=== PATIENT | male | born 1930 | race Caucasian/White ===

== ENCOUNTER 2020-11-29 23:41 | Inpatient (IN) | payer OTHER ==
[~2020-11-29] VITALS: Ht 182.9 cm; Wt 65.8 kg
[2020-11-30 00:45] LABS: RED BLOOD COUNT 3.38 M/UL (4.20-5.50); WHITE BLOOD COUNT 9.5 K/UL (4.5-11.0)
[2020-11-30 01:07] LABS: BUN/CREATININE RATIO 18 (0-10)
[2020-11-30] MEDS ORDERED: ASPIRIN81 MG PO (05:20)
[2020-11-30] MEDS ORDERED: B COMPLEX1 EACH PO (05:20)
[2020-11-30] MEDS ORDERED: TYLENOL 8 HOUR650 MG PO (05:21)
[2020-11-30] MEDS ORDERED: MIRTAZAPINE30 MG PO (05:22)
[2020-11-30] MEDS ORDERED: LEVOTHYROXINE50 MC1 PO (05:23)
[2020-11-30 09:57] LABS: HEMOGLOBIN 7.4 gm/dl (14.0-17.5); WHITE BLOOD COUNT 8.6 K/UL (4.5-11.0)
[2020-11-30 09:58] LABS: RED BLOOD COUNT 2.83 M/UL (4.20-5.50)
[2020-11-30 10:15] LABS: BUN/CREATININE RATIO 12 (0-10)
[2020-12-01 02:54] LABS: HEMOGLOBIN 7.8 gm/dl (14.0-17.5); RED BLOOD COUNT 2.83 M/UL (4.20-5.50)
[2020-12-01 03:09] LABS: BUN/CREATININE RATIO 11 (0-10); WHITE BLOOD COUNT 6.2 K/UL (4.5-11.0)
[2020-12-02 03:49] LABS: HEMOGLOBIN 8.3 gm/dl (14.0-17.5); RED BLOOD COUNT 3.1 M/UL (4.20-5.50); WHITE BLOOD COUNT 7.4 K/UL (4.5-11.0)
[2020-12-02 04:13] LABS: BUN/CREATININE RATIO 10 (0-10)
[2020-12-03 06:15] LABS: HEMOGLOBIN 8.1 gm/dl (14.0-17.5); WHITE BLOOD COUNT 6.6 K/UL (4.5-11.0)
[2020-12-03 06:43] LABS: BUN/CREATININE RATIO 12 (0-10)
[2020-12-03 15:11] LABS: A/G RATIO 0.6 (0.7-1.7); ALBUMIN 2.3 g/dL (2.9-4.4); ALPHA-1-GLOBULIN 0.5 g/dL (0.0-0.4); ALPHA-2-GLOBULIN 1.1 g/dL (0.4-1.0); BETA GLOBULIN 0.8 g/dL (0.7-1.3); GAMMA GLOBULIN 1.6 g/dL (0.4-1.8); IMMUNOFIXATION RESULT, SERUM Comment: (.); IMMUNOGLOBULIN A, QN, SERUM 380 mg/dL (61-437); IMMUNOGLOBULIN G, QN, SERUM 1591 mg/dL (603-1613); IMMUNOGLOBULIN M, QN, SERUM 54 mg/dL (15-143); M-SPIKE Not Observed g/dL (Not Observed); PROTEIN, TOTAL, SERUM 6.3 g/dL (6.0-8.5)
--- NOTE | 2020-12-03 17:22 | NUR ---
RN ADMINISTERED PATIENT'S LACTINEX PACKET IN APPLESAUCE. NO S/SX OF PAIN OR DISTRESS NOTED. BED LOCKED AND LOW. CALL LIGHT WITHIN REACH.
[2020-12-05 05:36] LABS: HEMOGLOBIN 8.3 gm/dl (14.0-17.5); RED BLOOD COUNT 3.07 M/UL (4.20-5.50); WHITE BLOOD COUNT 7.6 K/UL (4.5-11.0)
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
[2020-12-05 05:55] LABS: BUN/CREATININE RATIO 15 (0-10)
--- NOTE | 2020-12-05 06:24 | NUR ---
APPROX. 0530: PT ALLOWED ME AND TECH (RADHA) TO CHANGE PT'S BRIEF AND CHANGE HIS BED. STILL REFUSING IV ACCESS.
[2020-12-06 06:30] LABS: HEMOGLOBIN 8.6 gm/dl (14.0-17.5); RED BLOOD COUNT 3.21 M/UL (4.20-5.50); WHITE BLOOD COUNT 7.4 K/UL (4.5-11.0)
[2020-12-06 06:51] LABS: BUN/CREATININE RATIO 14 (0-10)
[2020-12-07 04:02] LABS: HEMOGLOBIN 8.7 gm/dl (14.0-17.5); RED BLOOD COUNT 3.22 M/UL (4.20-5.50); WHITE BLOOD COUNT 6.8 K/UL (4.5-11.0)
[2020-12-07 04:46] LABS: BUN/CREATININE RATIO 15 (0-10)
[2020-12-08 03:49] LABS: RED BLOOD COUNT 2.99 M/UL (4.20-5.50); WHITE BLOOD COUNT 6.3 K/UL (4.5-11.0)
[2020-12-08 04:29] LABS: BUN/CREATININE RATIO 13 (0-10)
[2020-12-09 03:04] LABS: HEMOGLOBIN 8.7 gm/dl (14.0-17.5)
[2020-12-09 03:07] LABS: RED BLOOD COUNT 3.31 M/UL (4.20-5.50)
[2020-12-09 03:28] LABS: BUN/CREATININE RATIO 13 (0-10)
[2020-12-10 06:11] LABS: HEMOGLOBIN 8.5 gm/dl (14.0-17.5); RED BLOOD COUNT 3.16 M/UL (4.20-5.50); WHITE BLOOD COUNT 7.7 K/UL (4.5-11.0)
[2020-12-10 06:31] LABS: BUN/CREATININE RATIO 15 (0-10)
[2020-12-11 04:29] LABS: HEMOGLOBIN 8.3 gm/dl (14.0-17.5); RED BLOOD COUNT 3.06 M/UL (4.20-5.50); WHITE BLOOD COUNT 8.2 K/UL (4.5-11.0)
[2020-12-11 04:42] LABS: BUN/CREATININE RATIO 19 (0-10)
[2021-02-07] MEDS ORDERED: SERTRALINE HCL25 MG PO (08:37)
[2021-02-07] MEDS ORDERED: FOLIC ACID 1 MG1 MG PO (08:37)
[2021-02-07] MEDS ORDERED: VITAMIN B COMP1 EAC1 PO (08:37)
[2021-02-07] MEDS ORDERED: DESYREL 50 MG T50 MG PO (08:40)
[2021-02-07] MEDS ORDERED: POTASSIUM20 MEQ/15 PO (08:45)
[2021-02-07] MEDS ORDERED: MELATONIN1 MG/1 ML PO (08:54)
== END 2020-12-12 14:00 | DRG 853 ==
LOC: ER1 23:41 → CDU 11-30 03:00 → MED SURG 4 11-30 03:00
PROVIDERS: Family Medicine; Internal Medicine; Registered Nurse; Surgery; ADMIT Internal Medicine
PROC: 07BH0ZX Excision of Right Inguinal Lymphatic, Open Approach, Diagnostic (ICD-10-PCS; principal; 2020-12-03 18:15)
DX: A41.9 Sepsis, unspecified organism (principal); J18.9 Pneumonia, unspecified organism; J69.0 Pneumonitis due to inhalation of food and vomit; C81.90 Hodgkin lymphoma, unspecified, unspecified site; Z68.1 Body mass index [BMI] 19.9 or less, adult; E03.9 Hypothyroidism, unspecified; I25.10 Atherosclerotic heart disease of native coronary artery without angina pectoris; R62.7 Adult failure to thrive; Z20.822 Contact with and (suspected) exposure to COVID-19; N40.0 Benign prostatic hyperplasia without lower urinary tract symptoms; R53.81 Other malaise; D64.9 Anemia, unspecified; E87.6 Hypokalemia; E83.42 Hypomagnesemia; R59.9 Enlarged lymph nodes, unspecified; R63.4 Abnormal weight loss; Z79.82 Long term (current) use of aspirin; Z95.5 Presence of coronary angioplasty implant and graft; Z87.01 Personal history of pneumonia (recurrent); Z98.42 Cataract extraction status, left eye; Z98.41 Cataract extraction status, right eye; Z88.1 Allergy status to other antibiotic agents; Z82.3 Family history of stroke; Z82.49 Family history of ischemic heart disease and other diseases of the circulatory system; Z80.59 Family history of malignant neoplasm of other urinary tract organ; Z90.49 Acquired absence of other specified parts of digestive tract
CPT/HCPCS: 0241U; 36415; 71045; 71046; 74230; 80048; 80053; 81001; 82784; 82962; 83605; 83735; 83883; 84100; 84132; 84155; 84165; 85025; 85027; 86334; 87040; 87081; 87086; 87205; 87880; 88341; 88342; 88365; 92526; 92610; 92611-GN; 93005; 94640; 94664; 94760; 96365; 96366; 96368; 97110; 97110-GP-CQ; 97162; 97530; 97530-GP-CQ; 99285; J0696; J1335; J1650; J3370; J3475; J3480; J7030; J7120; U0002; U0003

== ENCOUNTER 2021-02-06 20:22 | Observation (INO) | payer OTHER ==
[~2021-02-06] VITALS: Ht 182.9 cm; Wt 60.8 kg
[~2021-02-06 20:22] MED LIST: B COMPLEX1 EACH PO; TYLENOL 8 HOUR650 MG PO
[2021-02-06 20:57] LABS: HEMOGLOBIN 8.5 gm/dl (14.0-17.5); RED BLOOD COUNT 2.98 M/UL (4.20-5.50); WHITE BLOOD COUNT 7.9 K/UL (4.5-11.0)
[2021-02-06 21:22] LABS: BUN/CREATININE RATIO 18 (0-10)
[2021-02-07] MEDS ORDERED: HYDROXYZIN10 MG/5 ML PO (08:39)
[2021-02-07] MEDS ORDERED: MIRALAX17 GM PO (08:41)
[2021-02-07] MEDS ORDERED: ROBITUSSIN AC480 ML PO (08:44)
[2021-02-07 09:26] LABS: BUN/CREATININE RATIO 16 (0-10)
[2021-03-28] MEDS ORDERED: DOXYCYCLINE MO100 MG PO (12:37)
[2021-04-01] MEDS ORDERED: ASPIRIN EC81 MG PO (05:20)
[2021-04-06] MEDS ORDERED: DECADRON6 MG PO (12:13)
[2021-04-06] MEDS ORDERED: ELIQUIS 2.5 MG2.5 MG PO (12:13)
[2021-04-06] MEDS ORDERED: AUGMENTIN 875-1 EACH PO (12:13)
[2021-05-08] MEDS ORDERED: MIRTAZAPINE15 MG PO (05:22)
[2021-05-08] MEDS ORDERED: FOLIC ACID 1 MG1 MG PO (08:37)
[2021-05-08] MEDS ORDERED: VITAMIN B COMP1 EAC1 PO (08:37)
[2021-05-08] MEDS ORDERED: MELATONIN10 M2 PO (08:54)
== END 2021-02-07 17:19 | disposition home or self-care (01) ==
LOC: ER1 20:22 → CDU 02-07 00:11 → M/S 02-07 07:20
PROVIDERS: Physician Assistant; ADMIT Internal Medicine
DX: R07.89 Other chest pain (principal); I49.3 Ventricular premature depolarization; E87.6 Hypokalemia; I25.10 Atherosclerotic heart disease of native coronary artery without angina pectoris; I25.2 Old myocardial infarction; I10 Essential (primary) hypertension; E78.5 Hyperlipidemia, unspecified; E03.9 Hypothyroidism, unspecified; M48.56XD Collapsed vertebra, not elsewhere classified, lumbar region, subsequent encounter for fracture with routine healing; C81.91 Hodgkin lymphoma, unspecified, lymph nodes of head, face, and neck; C79.51 Secondary malignant neoplasm of bone; D50.8 Other iron deficiency anemias; E43 Unspecified severe protein-calorie malnutrition; Z68.1 Body mass index [BMI] 19.9 or less, adult; Z20.822 Contact with and (suspected) exposure to COVID-19; Z95.5 Presence of coronary angioplasty implant and graft; Z91.018 Allergy to other foods; Z98.890 Other specified postprocedural states; Z96.1 Presence of intraocular lens; Z88.1 Allergy status to other antibiotic agents; Z79.82 Long term (current) use of aspirin; Z79.899 Other long term (current) drug therapy
CPT/HCPCS: 36415; 71045; 80048; 80053; 81001; 82550; 82553; 83036; 83735; 83874; 83880; 84100; 84439; 84443; 84484; 84550; 85025; 85379; 85610; 85730; 87077; 87086; 87186; 93005; 96374; 99285; G0378; Q9967; U0002

== ENCOUNTER 2021-04-01 15:08 | Inpatient (IN) | payer OTHER ==
[~2021-04-01] VITALS: Ht 180.3 cm; Wt 61.2 kg
[~2021-04-01 15:08] MED LIST changes: +ASPIRIN EC81 MG PO; +DOXYCYCLINE MO100 MG PO; +FOLIC ACID 1 MG1 MG PO; +HYDROXYZIN10 MG/5 ML PO; +MELATONIN1 MG/1 ML PO; +MIRALAX17 GM PO; +MIRTAZAPINE30 MG PO; +ROBITUSSIN AC480 ML PO; +VITAMIN B COMP1 EAC1 PO
[2021-04-01 15:29] LABS: HEMOGLOBIN 8.9 gm/dl (14.0-17.5); RED BLOOD COUNT 3.01 M/UL (4.20-5.50)
[2021-04-01 15:48] LABS: BUN/CREATININE RATIO 18 (0-10)
[2021-04-02 04:40] LABS: BUN/CREATININE RATIO 19 (0-10)
[2021-04-02 04:58] LABS: RED BLOOD COUNT 2.79 M/UL (4.20-5.50)
[2021-04-02 05:03] LABS: WHITE BLOOD COUNT 1.1 K/UL (4.5-11.0)
[2021-04-02] MEDS ORDERED: LEVOTHYROXINE50 MCG PO (05:23)
[2021-04-02] MEDS ORDERED: SERTRALINE HCL25 MG PO (08:37)
[2021-04-02] MEDS ORDERED: TRAZODONE HCL100 MG PO (08:40)
[2021-04-02] MEDS ORDERED: POTASSIUM20 MEQ/15 PO (08:45)
[2021-04-02] MEDS ORDERED: QUETIAPINE FUMA25 MG PO (12:15)
--- NOTE | 2021-04-03 02:30 | NUR ---
AT APPROXIMATELY 2200 I CONTACTED THE PTS DAUGHTER CHANTAL BROOKS TO OBTAIN HIS ADMIT ASSESSMENT INFORMATION. 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 I EXPLAINED WHAT THIS MEANT AND SHE VERBALIZED UNDERSTANDING. I CONTACTED THE MD AND NOTIFIED HIM AND RECEIVED AND ORDER FOR DNR STATUS.
[2021-04-03 04:17] LABS: HEMOGLOBIN 8.7 gm/dl (14.0-17.5); RED BLOOD COUNT 2.97 M/UL (4.20-5.50)
[2021-04-03 04:28] LABS: WHITE BLOOD COUNT 2.4 K/UL (4.5-11.0)
[2021-04-03 04:53] LABS: BUN/CREATININE RATIO 24 (0-10)
[2021-04-04 07:15] LABS: HEMOGLOBIN 8.9 gm/dl (14.0-17.5); RED BLOOD COUNT 3.16 M/UL (4.20-5.50)
[2021-04-04 07:17] LABS: WHITE BLOOD COUNT 4.6 K/UL (4.5-11.0)
[2021-04-04 08:07] LABS: BUN/CREATININE RATIO 26 (0-10)
[2021-04-05 06:32] LABS: HEMOGLOBIN 9.4 gm/dl (14.0-17.5); RED BLOOD COUNT 3.2 M/UL (4.20-5.50); WHITE BLOOD COUNT 4.7 K/UL (4.5-11.0)
[2021-04-05 06:44] LABS: BUN/CREATININE RATIO 23 (0-10)
[2021-04-06 07:47] LABS: RED BLOOD COUNT 3.17 M/UL (4.20-5.50); WHITE BLOOD COUNT 5.5 K/UL (4.5-11.0)
[2021-04-06 08:01] LABS: BUN/CREATININE RATIO 21 (0-10)
[2021-04-06] MEDS ORDERED: ELIQUIS 2.5 MG2.5 MG PO (12:13)
[2021-04-06] MEDS ORDERED: DECADRON6 MG PO (12:13)
[2021-04-06] MEDS ORDERED: AUGMENTIN 875-1 EACH PO (12:13)
[2021-04-07 07:01] LABS: HEMOGLOBIN 9.3 gm/dl (14.0-17.5); RED BLOOD COUNT 3.16 M/UL (4.20-5.50); WHITE BLOOD COUNT 5.2 K/UL (4.5-11.0)
[2021-04-07 07:24] LABS: BUN/CREATININE RATIO 18 (0-10)
--- NOTE | 2021-04-07 13:56 | NUR ---
04/07/21 1352 REPORT CALLED TO SWATI AT [facility] AT [phone]
== END 2021-04-07 13:50 | disposition home health service (06) | DRG 177 ==
LOC: ER1 15:08 → CDU 16:37 → MED SURG 4 16:37
PROVIDERS: Preventive Medicine Occupational Medicine; ADMIT Internal Medicine
PROC: XW033E5 Introduction of Remdesivir Anti-infective into Peripheral Vein, Percutaneous Approach, New Technology Group 5 (ICD-10-PCS; principal; 2021-04-01)
PROC: 3E0333Z Introduction of Anti-inflammatory into Peripheral Vein, Percutaneous Approach (ICD-10-PCS; 2021-04-01)
PROC: 8E0ZXY6 Isolation (ICD-10-PCS; 2021-04-01)
DX: U07.1 COVID-19 (principal); J12.82 Pneumonia due to coronavirus disease 2019; J15.9 Unspecified bacterial pneumonia; E43 Unspecified severe protein-calorie malnutrition; J96.01 Acute respiratory failure with hypoxia; D61.810 Antineoplastic chemotherapy induced pancytopenia; C85.90 Non-Hodgkin lymphoma, unspecified, unspecified site; E87.4 Mixed disorder of acid-base balance; E87.3 Alkalosis; Z68.1 Body mass index [BMI] 19.9 or less, adult; Z51.5 Encounter for palliative care; Z66 Do not resuscitate; E03.9 Hypothyroidism, unspecified; D63.8 Anemia in other chronic diseases classified elsewhere; T45.1X5A Adverse effect of antineoplastic and immunosuppressive drugs, initial encounter; I25.10 Atherosclerotic heart disease of native coronary artery without angina pectoris; Z95.5 Presence of coronary angioplasty implant and graft; Z88.8 Allergy status to other drugs, medicaments and biological substances; Z79.01 Long term (current) use of anticoagulants; Z79.82 Long term (current) use of aspirin; Z98.42 Cataract extraction status, left eye; Z98.41 Cataract extraction status, right eye
CPT/HCPCS: 36415; 36600; 71045; 71250; 80053; 80202; 81001; 82550; 82553; 82728; 82803; 83540; 83550; 83605; 83690; 83735; 83874; 83880; 84100; 84132; 84484; 85025; 85379; 85610; 86140; 87040; 87070; 87086; 87205; 92526; 92610; 93005; 94640; 94664; 94760; 96374; 99285; J0696; J1100; J2185; J3370; J3475; J3480; J7030; J7070; U0002

== ENCOUNTER → 2021-04-30 | Outpatient (CLI) | payer OTHER ==
[~2021-04-30] MED LIST changes: +AUGMENTIN 875-1 EACH PO; +DECADRON6 MG PO; +ELIQUIS 2.5 MG2.5 MG PO; +LEVOTHYROXINE50 MCG PO; +POTASSIUM20 MEQ/15 PO; +QUETIAPINE FUMA25 MG PO; +SERTRALINE HCL25 MG PO; +TRAZODONE HCL100 MG PO
== END ==
LOC: HEART 5 11:05
DX: R06.02 Shortness of breath (principal); Z86.16 Personal history of COVID-19
CPT/HCPCS: 94010

== ENCOUNTER 2021-05-08 14:51 | Inpatient (IN) | payer OTHER ==
[~2021-05-08] VITALS: Ht 182.9 cm; Wt 59.4 kg
[~2021-05-08 14:51] MED LIST changes: -MELATONIN1 MG/1 ML PO; +MELATONIN10 M2 PO; +MIRTAZAPINE15 MG PO; -MIRTAZAPINE30 MG PO
[2021-05-08 16:24] LABS: BUN/CREATININE RATIO 17 (0-10)
[2021-05-08 16:43] LABS: HEMOGLOBIN 7.8 gm/dl (14.0-17.5); RED BLOOD COUNT 2.59 M/UL (4.20-5.50); WHITE BLOOD COUNT 7.7 K/UL (4.5-11.0)
[2021-05-09 07:43] LABS: HEMOGLOBIN 7.4 gm/dl (14.0-17.5); RED BLOOD COUNT 2.53 M/UL (4.20-5.50)
[2021-05-09 07:54] LABS: WHITE BLOOD COUNT 5.5 K/UL (4.5-11.0)
[2021-05-09 08:13] LABS: BUN/CREATININE RATIO 18 (0-10)
--- NOTE | 2021-05-09 17:43 | NUR ---
PT SITTING UP IN THE BED DENIES NEEDS OR C/O AT THIS TIME. HE HAS HIS DAUGHTER AT THE BEDSIDE. PLATELET COUNT TRENDED UP FROM 2 TO 12. CALL BRISCOE AND PHONE IN REACH.
[2021-05-10 08:57] LABS: RED BLOOD COUNT 2.17 M/UL (4.20-5.50)
[2021-05-10 08:58] LABS: HEMOGLOBIN 6.3 gm/dl (14.0-17.5)
[2021-05-10 09:01] LABS: BUN/CREATININE RATIO 21 (0-10)
--- NOTE | 2021-05-11 02:57 | NUR ---
PT SLEEPING DAUGHTER REQUEST PT NOT BE DISTURBED. TYLENOL WAS LEFT FOR PT WHEN WAKES. DAUGHTERS ARE PTS FULLTIME CAREGIVERS AND ASSISTS WITH PATIENTS CARE. WILL GIVE TYLENOL ONCE WAKES. PT CLEAN AND DRY AT THIS TIME.
[2021-05-11 08:16] LABS: BUN/CREATININE RATIO 26 (0-10)
[2021-05-11 08:43] LABS: HEMOGLOBIN 8.4 gm/dl (14.0-17.5); RED BLOOD COUNT 2.79 M/UL (4.20-5.50); WHITE BLOOD COUNT 6.4 K/UL (4.5-11.0)
[2021-05-12 06:11] LABS: HEMOGLOBIN 9.5 gm/dl (14.0-17.5); WHITE BLOOD COUNT 6.8 K/UL (4.5-11.0)
[2021-05-12 06:38] LABS: BUN/CREATININE RATIO 26 (0-10)
[2021-05-12 07:01] LABS: RED BLOOD COUNT 3.14 M/UL (4.20-5.50)
[2021-05-12 15:46] LABS: WHITE BLOOD COUNT 7.6 K/UL (4.5-11.0)
[2021-05-12 15:49] LABS: HEMOGLOBIN 11.6 gm/dl (14.0-17.5); RED BLOOD COUNT 3.79 M/UL (4.20-5.50)
[2021-05-13 06:53] LABS: BUN/CREATININE RATIO 26 (0-10)
[2021-05-13 14:34] LABS: HEMOGLOBIN 8.8 gm/dl (14.0-17.5); RED BLOOD COUNT 2.98 M/UL (4.20-5.50); WHITE BLOOD COUNT 6.1 K/UL (4.5-11.0)
[2021-05-14 06:59] LABS: HEMOGLOBIN 8.7 gm/dl (14.0-17.5); RED BLOOD COUNT 2.83 M/UL (4.20-5.50); WHITE BLOOD COUNT 6.1 K/UL (4.5-11.0)
[2021-05-14 07:36] LABS: BUN/CREATININE RATIO 31 (0-10)
[2021-05-15 06:10] LABS: HBSAG SCREEN Negative (Negative); HEP A AB, IGM Negative (Negative); HEP B CORE AB, IGM Negative (Negative); HEP C VIRUS AB <0.1 (0.0-0.9)
[2021-05-15 07:10] LABS: RED BLOOD COUNT 2.97 M/UL (4.20-5.50); WHITE BLOOD COUNT 6.5 K/UL (4.5-11.0)
[2021-05-16 06:09] LABS: HEMOGLOBIN 8.8 gm/dl (14.0-17.5); RED BLOOD COUNT 2.87 M/UL (4.20-5.50); WHITE BLOOD COUNT 5.8 K/UL (4.5-11.0)
[2021-05-16 06:31] LABS: BUN/CREATININE RATIO 31 (0-10)
[2021-05-17 03:47] LABS: HEMOGLOBIN 8.7 gm/dl (14.0-17.5); RED BLOOD COUNT 2.84 M/UL (4.20-5.50); WHITE BLOOD COUNT 6.5 K/UL (4.5-11.0)
[2021-05-17 04:05] LABS: BUN/CREATININE RATIO 34 (0-10)
[2021-05-18 07:39] LABS: HEMOGLOBIN 8.4 gm/dl (14.0-17.5); RED BLOOD COUNT 2.8 M/UL (4.20-5.50); WHITE BLOOD COUNT 6.8 K/UL (4.5-11.0)
[2021-05-18 07:52] LABS: BUN/CREATININE RATIO 34 (0-10)
[2021-05-19 07:37] LABS: HEMOGLOBIN 8.7 gm/dl (14.0-17.5); RED BLOOD COUNT 2.9 M/UL (4.20-5.50)
[2021-05-19 08:47] LABS: BUN/CREATININE RATIO 37 (0-10)
[2021-05-20 07:34] LABS: RED BLOOD COUNT 2.91 M/UL (4.20-5.50); WHITE BLOOD COUNT 7.8 K/UL (4.5-11.0)
[2021-05-20 08:04] LABS: BUN/CREATININE RATIO 36 (0-10)
--- NOTE | 2021-05-20 17:57 | NUR ---
patient complaints of sob and pulse ox of 93-94% room air. after 15 min daughter came out and reported patient cont to complain of sob. recheck pulse ox and 94-95%. given and O22l via n/c and patient reports of feeling better. reported the above to dr. edmond and stated ok for patient to have 022l via n/c. will cont to monitor
[2021-05-21 03:08] LABS: HEMOGLOBIN 9.2 gm/dl (14.0-17.5); RED BLOOD COUNT 2.99 M/UL (4.20-5.50); WHITE BLOOD COUNT 7.7 K/UL (4.5-11.0)
--- NOTE | 2021-05-21 12:27 | NUR ---
notified dr. butler of dr. edmond's request to let him know if patient can be sent home of platelets 24. notified dr. edmond that dr. butler wanted patient to be 30 and above on his platelets before considering patient to go home. dr. butler will see patient this evening.
[2021-05-22 07:14] LABS: RED BLOOD COUNT 2.87 M/UL (4.20-5.50); WHITE BLOOD COUNT 6.7 K/UL (4.5-11.0)
--- NOTE | 2021-05-22 14:50 | NUR ---
informed dr. edmond of oncologist progress notes to order xray of the humerus. she acknowledged
[2021-05-23 10:37] LABS: HEMOGLOBIN 9.1 gm/dl (14.0-17.5); RED BLOOD COUNT 2.95 M/UL (4.20-5.50); WHITE BLOOD COUNT 5.3 K/UL (4.5-11.0)
--- NOTE | 2021-05-23 13:48 | NUR ---
At 1348 Dr. Muse was alerted about difficulties with the patient's picc line and that it wouldn't be usable for the infusion of the needed platelets. Patient platelets are currently at [address] Muse is are, yet advises that a peripheral line be started so the transfusion can be started.
[2021-05-24 06:44] LABS: WHITE BLOOD COUNT 4.1 K/UL (4.5-11.0)
[2021-05-24 07:10] LABS: RED BLOOD COUNT 2.62 M/UL (4.20-5.50)
[2021-05-25 07:54] LABS: HEMOGLOBIN 7.7 gm/dl (14.0-17.5); RED BLOOD COUNT 2.57 M/UL (4.20-5.50); WHITE BLOOD COUNT 4.2 K/UL (4.5-11.0)
[2021-05-26 05:27] LABS: HEMOGLOBIN 8.2 gm/dl (14.0-17.5); RED BLOOD COUNT 2.69 M/UL (4.20-5.50)
[2021-05-27 07:56] LABS: HEMOGLOBIN 8.2 gm/dl (14.0-17.5); RED BLOOD COUNT 2.71 M/UL (4.20-5.50); WHITE BLOOD COUNT 4.9 K/UL (4.5-11.0)
[2021-05-27] MEDS ORDERED: PROMACTA50 MG PO (15:30)
== END 2021-05-27 15:57 | disposition home health service (06) | DRG 813 ==
LOC: ER1 14:51 → M/S 16:57 → CDU 16:57 → M/S 18:26
PROVIDERS: Emergency Medicine; Internal Medicine; Physician Assistant; Physician Assistant Medical; ADMIT Internal Medicine
PROC: 30233S1 Transfusion of Nonautologous Globulin into Peripheral Vein, Percutaneous Approach (ICD-10-PCS; 2021-05-08)
PROC: 30233N1 Transfusion of Nonautologous Red Blood Cells into Peripheral Vein, Percutaneous Approach (ICD-10-PCS; 2021-05-10)
PROC: 30233R1 Transfusion of Nonautologous Platelets into Peripheral Vein, Percutaneous Approach (ICD-10-PCS; principal; 2021-05-16)
PROC: 07DR0ZX Extraction of Iliac Bone Marrow, Open Approach, Diagnostic (ICD-10-PCS; 2021-05-19)
DX: D69.3 Immune thrombocytopenic purpura (principal); E43 Unspecified severe protein-calorie malnutrition; J96.01 Acute respiratory failure with hypoxia; C81.90 Hodgkin lymphoma, unspecified, unspecified site; D61.818 Other pancytopenia; Z68.1 Body mass index [BMI] 19.9 or less, adult; Z20.822 Contact with and (suspected) exposure to COVID-19; Z66 Do not resuscitate; I10 Essential (primary) hypertension; E03.9 Hypothyroidism, unspecified; E78.5 Hyperlipidemia, unspecified; I25.10 Atherosclerotic heart disease of native coronary artery without angina pectoris; K21.9 Gastro-esophageal reflux disease without esophagitis; E55.9 Vitamin D deficiency, unspecified; N40.0 Benign prostatic hyperplasia without lower urinary tract symptoms; R31.9 Hematuria, unspecified; R06.02 Shortness of breath; R21 Rash and other nonspecific skin eruption; T80.89XA Other complications following infusion, transfusion and therapeutic injection, initial encounter; R45.1 Restlessness and agitation; Y83.8 Other surgical procedures as the cause of abnormal reaction of the patient, or of later complication, without mention of misadventure at the time of the procedure; Y92.239 Unspecified place in hospital as the place of occurrence of the external cause; D63.8 Anemia in other chronic diseases classified elsewhere; Z86.16 Personal history of COVID-19; Z87.01 Personal history of pneumonia (recurrent); Z95.5 Presence of coronary angioplasty implant and graft; Z98.42 Cataract extraction status, left eye; Z98.41 Cataract extraction status, right eye; Z90.49 Acquired absence of other specified parts of digestive tract; Z82.3 Family history of stroke; Z82.49 Family history of ischemic heart disease and other diseases of the circulatory system; Z80.8 Family history of malignant neoplasm of other organs or systems; Z88.1 Allergy status to other antibiotic agents
CPT/HCPCS: 36415; 36430; 71045; 73060; 80048; 80053; 80074; 81001; 82550; 82553; 83010; 83615; 83735; 84132; 84484; 85025; 85027; 85045; 85097; 85610; 85730; 86850; 86880; 86900; 86901; 86920; 87040; 88341; 88342; 96374; 96375; 99285; J0696; J1200; J1335; J1568; J1940; J2796; J2920; J2930; J7050; P9037; P9040

== ENCOUNTER 2021-06-03 17:05 | Inpatient (IN) | payer OTHER ==
[~2021-06-03] VITALS: Ht 182.9 cm; Wt 61.3 kg
[~2021-06-03 17:05] MED LIST changes: +PROMACTA50 MG PO
[2021-06-03 18:22] LABS: HEMOGLOBIN 8.3 gm/dl (14.0-17.5); RED BLOOD COUNT 2.85 M/UL (4.20-5.50); WHITE BLOOD COUNT 6.1 K/UL (4.5-11.0)
[2021-06-03 18:49] LABS: BUN/CREATININE RATIO 25 (0-10)
[2021-06-03] MEDS ORDERED: PROMACTA50 MG PO (22:53)
[2021-06-04 05:19] LABS: HEMOGLOBIN 7.7 gm/dl (14.0-17.5); RED BLOOD COUNT 2.68 M/UL (4.20-5.50); WHITE BLOOD COUNT 4.7 K/UL (4.5-11.0)
[2021-06-04 05:48] LABS: BUN/CREATININE RATIO 29 (0-10)
[2021-06-05 03:08] LABS: ACINETOBACTER BAUMANNII Not Detected (Negative); CANDIDA ALBICANS Not Detected (Negative); CANDIDA KRUSEI Not Detected (Negative); CANDIDA TROPICALIS Not Detected (Negative); ENTEROCOCCUS Not Detected (Negative); ESCHERICHIA COLI Not Detected (Negative); HAEMOPHILUS INFLUENZAE Not Detected (Negative); KLEBSIELLA OXYTOCA Not Detected (Negative); KLEBSIELLA PNEUMONIAE Not Detected (Negative); KPC-CARBAPENEM-RESISTANCE GENE Not Detected (Negative); PROTEUS Not Detected (Negative); PSEUDOMONAS AERUGINOSA Not Detected (Negative); SERRATIA MARCESANS Not Detected (Negative); STAPHYLOCOCCUS AUREUS Not Detected (Negative); STREP AGALACTIAE (GROUP B) Not Detected (Negative); STREP PYOGENES (GROUP A) Not Detected (Negative); STREPTOCOCCUS Not Detected (Negative); mecA (METHICILLIN RESIST GENE Not Detected (Negative); vanA/B (VANCOMYCIN RESIST GENE Not Detected (Negative)
[2021-06-05 03:10] LABS: STAPHYLOCOCCUS DETECTED (Negative)
[2021-06-05 04:21] LABS: HEMOGLOBIN 7.5 gm/dl (14.0-17.5); RED BLOOD COUNT 2.57 M/UL (4.20-5.50)
[2021-06-05 04:37] LABS: BUN/CREATININE RATIO 41 (0-10)
[2021-06-05 05:05] LABS: WHITE BLOOD COUNT 7.2 K/UL (4.5-11.0)
[2021-06-06 03:24] LABS: HEMOGLOBIN 8.3 gm/dl (14.0-17.5); RED BLOOD COUNT 2.79 M/UL (4.20-5.50); WHITE BLOOD COUNT 7.6 K/UL (4.5-11.0)
[2021-06-06 04:06] LABS: BUN/CREATININE RATIO 41 (0-10)
[2021-06-07 09:46] LABS: HEMOGLOBIN 9.3 gm/dl (14.0-17.5); RED BLOOD COUNT 3.1 M/UL (4.20-5.50); WHITE BLOOD COUNT 7.2 K/UL (4.5-11.0)
[2021-06-08 08:32] LABS: HEMOGLOBIN 8.9 gm/dl (14.0-17.5); WHITE BLOOD COUNT 6.5 K/UL (4.5-11.0)
[2021-06-08 09:15] LABS: BUN/CREATININE RATIO 28 (0-10)
[2021-06-09 05:11] LABS: HEMOGLOBIN 8.7 gm/dl (14.0-17.5); RED BLOOD COUNT 2.96 M/UL (4.20-5.50); WHITE BLOOD COUNT 8.1 K/UL (4.5-11.0)
[2021-06-09 05:30] LABS: BUN/CREATININE RATIO 26 (0-10)
[2021-06-09] MEDS ORDERED: LEVOFLOXACIN500 MG PO (11:39)
== END 2021-06-09 13:49 | disposition home or self-care (01) | DRG 813 ==
LOC: ER1 17:05 → CDU 18:11 → PROG CARE 22:03
PROVIDERS: Emergency Medicine; Internal Medicine; ADMIT Internal Medicine
PROC: 30233S1 Transfusion of Nonautologous Globulin into Peripheral Vein, Percutaneous Approach (ICD-10-PCS; principal; 2021-06-04)
PROC: 30233R1 Transfusion of Nonautologous Platelets into Peripheral Vein, Percutaneous Approach (ICD-10-PCS; principal; 2021-06-04)
DX: D69.3 Immune thrombocytopenic purpura (principal); J18.9 Pneumonia, unspecified organism; E43 Unspecified severe protein-calorie malnutrition; C81.90 Hodgkin lymphoma, unspecified, unspecified site; D61.818 Other pancytopenia; G93.49 Other encephalopathy; L89.156 Pressure-induced deep tissue damage of sacral region; D63.0 Anemia in neoplastic disease; Z66 Do not resuscitate; E03.9 Hypothyroidism, unspecified; E78.5 Hyperlipidemia, unspecified; I10 Essential (primary) hypertension; Z88.1 Allergy status to other antibiotic agents; Z86.16 Personal history of COVID-19; Z98.49 Cataract extraction status, unspecified eye; Z98.890 Other specified postprocedural states; Z74.01 Bed confinement status
CPT/HCPCS: 36415; 71045; 80048; 80053; 80202; 81001; 82550; 82553; 83605; 83874; 84132; 84484; 85025; 85027; 86850; 86900; 86901; 87040; 87077; 87150; 87186; 93005; 99285; A6212; C1751; J1100; J1200; J1568; J2185; J2930; J3370; J7030; J7050; J7070; P9037